=== PATIENT | female | born 2000 | race Caucasian/White ===

== ENCOUNTER 2023-06-24 19:38 | Emergency (ER) | payer OTHER | END 2023-06-24 20:38 | disposition home or self-care (01) | LOC: NAV ERS 19:38 | DX: H81.13 Benign paroxysmal vertigo, bilateral (principal); H92.01 Otalgia, right ear | CPT/HCPCS: 93005 ==

== ENCOUNTER 2024-06-13 18:01 | Emergency (ER) | payer OTHER ==
[2024-06-13] MEDS ORDERED: Azithromycin 250 MG TAB ONE (18:44)
[2024-06-13] MEDS ORDERED: predniSONE 20 MG TAB ONE (18:44)
== END 2024-06-13 19:04 | disposition home or self-care (01) ==
LOC: NAV ERS 18:01
DX: H66.91 Otitis media, unspecified, right ear (principal); H73.91 Unspecified disorder of tympanic membrane, right ear
CPT/HCPCS: 99282; J7512